=== PATIENT | male | born 1970 | race Caucasian/White ===

== ENCOUNTER 2018-07-27 11:15 | Emergency (ER) | payer BC ==
[2018-07-27 11:29] VITALS: BP 146/92
--- NOTE | 2018-07-27 11:38 | UC ---
Dizzy HPI HPI Summary: In Room Note: The patient is a 48 y/o M presenting to [facility] accompanied by his from [place] with a chief complaint of dizziness, numbness and tingling in the left arm, and SOB starting at 1000 this morning. He was outside on a walk with this when his left arm suddenly became numb and he became dizzy as if he was going to syncope. He also reports SOB at time of onset. He went back home, lied down, and drank some water, but the dizziness lasted for about an hour, and the numbness is still present at . He additionally c/o nausea without vomiting, diaphoresis, and diarrhea. He denies CP. His current discomfort is rated 2/10 in severity. Two days ago he was prescribed Amlodipine by his PCP, which he has been taking for HTN, but the dosage has increased because his BP has been increasing. He has hx of Type II DM (didn't check his glucose levels today), GERD, and sciatica. He has had previous experiences with bilateral arm tingling. He does not have hx of cardiac disease, but had a cardiac cath done about five years ago. FHx of cardiac disease. MD Note: Vital signs stable: BP 156/93 BP, Pulse Ox 100%. 2/10 discomfort from dizziness. Visit history: noncontributory to present complaint. Patient began on new antihypertensive medication yesterday. Nurse's Note: this morning started to feel dizzy, and left arm numbness. He has started on new meds last night and today. pt also has type 2 diabetes, and does not have his glucometer. - History Of Current Complaint Chief Complaint: UCDizziness Stated Complaint: DIZZINESS Time Seen by Provider: 07/27/18 11:20 Hx Obtained From: Patient Onset/Duration: Sudden Onset, Lasting Hours - starting at 1000 this morning, Still Present - tingling and numbness in left arm, Resolved - dizziness Timing: Hours Severity Initially: Moderate Severity Currently: Mild Pain Intensity: 2 Pain Scale Used: 0-10 Numeric Character: Dizzy - syncopal feeling Aggravating Factor(s): Nothing Alleviating Factor(s): Rest, Lying Down Associated Signs And Symptoms: Positive: Nausea, Diaphoresis, SOB, Change In Medication - new Amlodpain dosage but has been taking Amlodapine. Negative: Vomiting, Chest Pain - Allergies/Home Medications Allergies/Adverse Reactions: Allergies Allergy/AdvReac Type Severity Reaction Status Date / Time No Known Allergies Allergy Verified 07/27/18 12:31 Home Medications: Home Medications Allopurinol 100 mg PO DAILY 07/27/18 [History Confirmed 07/27/18] Cataplex 6 tab PO DAILY 07/27/18 [History Confirmed 07/27/18] Glimepiride 1 mg PO DAILY 07/27/18 [History Confirmed 07/27/18] [place]-3 Fatty Acids [Atl[place]-3] 1 tab PO DAILY 07/27/18 [History Confirmed ] Tizanidine HCl 2 mg PO DAILY 07/27/18 [History Confirmed 07/27/18] amLODIPine/Benazepril 08/31(NF [Lotrel 08/31(NF)] 1 tab PO DAILY 07/27/18 [ History Confirmed 07/27/18] PMH/Surg Hx/FS Hx/Imm Hx Endocrine History: Diabetes - Type II DM Cardiovascular History: Hypertension GI/ History: Gastroesophageal Reflux - Surgical History Surgical History: Yes Surgery Procedure, Year, and Place: hernia repair, bunion removal, right knee surgery with screws - Family History Known Family History: Positive: Cardiac Disease, Hypertension - Social History Occupation: Employed Full-time Alcohol Use: Daily Substance Use Type: None Smoking Status (MU): Never Smoked Tobacco Review of Systems Constitutional: Negative Skin: Negative Eyes: Negative ENT: Negative Respiratory: Shortness Of Breath, Other - NEGATIVE: SOB Cardiovascular: Negative, Other - NEGATIVE: CP Gastrointestinal: Diarrhea, Nausea, Other - NEGATIVE: vomiting Genitourinary: Negative Motor: Negative Neurovascular: Negative Musculoskeletal: Negative Neurological: Numbness - in left arm, Other - dizziness Psychological: Negative All Other Systems Reviewed And Are Negative: Yes - Comments Additional Review of Systems Comments: POSITIVE: dizziness, SOB, nausea, diarrhea, diaphoresis, left arm numbness and tingling; NEGATIVE: vomiting Physical Exam - Summary Physical Exam Summary: Appearance: The patient is well-appearing, is in no pain distress, and is well- nourished. Eyes: Conjunctiva are clear. ENT: The hearing is grossly normal, the pharynx is normal, and the TMs are normal. There is no muffled or hoarse voice. Neck: The neck is supple and there is no lymphadenopathy. Respiratory: The chest is nontender. The lungs are clear, there are normal breath sounds, and there is no respiratory distress. Cardiovascular: Heart is regular rate and rhythm. S1 and S2 normal. There is no murmur. Radial pulses equal and within normal limits. Femoral pulses equal and within normal limits. Abdomen: The abdomen is soft and nontender. No pulsations. There is no organomegaly. Bowel sounds: present Musculoskeletal: Strength is intact. The patient moves all extremities. Neurological: The patient is alert. Motor and sensory examination grossly intact. Psychological: The patient displays age appropriate behavior Skin: Negative for rashes. Triage Information Reviewed: Yes Vital Signs: Initial Vital Signs Temp 97.7 F 07/27/18 11:18 Pulse 79 07/27/18 11:18 Resp 18 07/27/18 11:18 BP 156/93 07/27/18 11:18 Pulse Ox 100 07/27/18 11:18 Vital Signs Reviewed: Yes Diagnostics - EKG EKG Comments: Taken at 11:13. No ST elevations. Cardiac Rate: NL - 70 BPM Cardiac Rhythm: Sinus: Normal Dizzy Course/Dx - Course Course Of Treatment: 48 y/o M presents with a varied past medical history including sciatica and what sounds like nerve impingement, problems to the upper extremities. Nonetheless, this morning the pt experienced dizziness, left arm numbness, seating, nausea, and SOB but with no CP. The remainder of the review was negative except as stated above in the HPI. EKG was unremarkable, but I encouraged the patient and his to go to the ED for further evaluation. He was stable upon discharge. My diagnosis is dizziness and left arm numbness, unclear etiopathy. Possible vertigo, possible cardiovascular event. Medications have been included in the original chart and reviewed. Elevated BP but has current hypertension diagnosis and treatment. - Differential Dx/Diagnosis Differential Diagnosis/HQI/PQRI: Other - vertigo, cardiovascular event Provider Diagnoses: dizziness and left arm numbness, unclear etiology Discharge - Sign-Out/Discharge Documenting (check all that apply): Patient Departure - Patient will be discharged with instruction to go immediately to ED. All imaging exams completed and their final reports reviewed: No Studies - Discharge Plan Condition: Stable Disposition: HOME-RECOMMEND TO ED Patient Education Materials: Dizziness (ED) Referrals: No Primary Care Phys,NOPCP [Primary Care Provider] - [facility] [Outside] - 1 Week Additional Instructions: Your blood pressure reading today was 156/93, indicating HYPERTENSION. Follow- up with your primary care provider within 4 weeks for blood pressure readings and further evaluation. Follow up with your doctor to recheck a few times in the next month. WE DISCUSSED: You should go to the ED now for further evaluation and treatment as needed. The combination of dizziness, nausea, sweating and left arm numbness may be something serious or simply a combination of a number of your usual problems. Your EKG was normal. Go directly to the emergency department. - Billing Disposition and Condition Condition: STABLE Disposition: Home-Recommend to ED - Attestation Statements Document Initiated by Elly: Yes Documenting Scribe: Sheron Polo Provider For Whom Elly is Documenting (Include Credential): Dr. Shane Rosado MD Scribe Attestation: Sheron Sibley scribed for Dr. Shane Rosado MD on 07/27/18 at 1528. Scribe Documentation Reviewed: Yes Provider Attestation: The documentation as recorded by the Sheron flores accurately reflects the service I personally performed and the decisions made by me, Dr. Shane Rosado MD
== END 2018-07-27 12:02 | disposition home health service (06) ==
LOC: UCEAST 11:15
DX: R42 Dizziness and giddiness (principal); R20.0 Anesthesia of skin; R20.2 Paresthesia of skin; E11.9 Type 2 diabetes mellitus without complications; I10 Essential (primary) hypertension; R11.0 Nausea; R61 Generalized hyperhidrosis; R06.02 Shortness of breath; Z79.84 Long term (current) use of oral hypoglycemic drugs; Z79.899 Other long term (current) drug therapy
CPT/HCPCS: 93005; 99202; G0463

== ENCOUNTER 2018-07-27 12:24 | Emergency (ER) | payer BC ==
--- NOTE | 2018-07-27 12:52 | ED ---
Dizziness - HPI Summary HPI Summary: 48 year old M referred from [facility] to [facility] accompanied by complains of dizziness described as almost passing out that began 10:00 this morning while taking a walk around [place] with . Symptoms aggravated by nothing. Symptoms alleviated by nothing. Patient reports lightheadedness and left arm numbness. He also notes feeling overheated and having clammy hands. He additionally complains of nausea and diarrhea. reports that patient's skin was pale on the car ride here. Patient and his are visiting from [place]. - History Of Current Complaint Chief Complaint: EDDizziness Stated Complaint: BLOOD WORK Time Seen by Provider: 07/27/18 12:32 Hx Obtained From: Patient, Family/Career Development Facilitator - Onset/Duration: Still Present, Suddenly Timing: Constant Character: Lightheaded - almost passing out Aggravating Factor(s): Nothing Alleviating Factor(s): Nothing Associated Signs And Symptoms: Positive: Other: - lightheadedness, left arm numbness, feeling overheated, having clammy hands, nausea, diarrhea, pale skin - Allergies/Home Medications Allergies/Adverse Reactions: Allergies Allergy/AdvReac Type Severity Reaction Status Date / Time No Known Allergies Allergy Verified 07/27/18 12:31 PMH/Surg Hx/FS Hx/Imm Hx Previously Healthy: No Endocrine/Hematology History: Reports: Hx Diabetes - type 2 Cardiovascular History: Reports: Hx Hypertension - started on new meds Neurological History: Reports: Other Neuro Impairments/Disorders - hx sciatica - Surgical History Surgery Procedure, Year, and Place: hernia repair, bunion removal, right knee surgery with screws Infectious Disease History: No Infectious Disease History: Denies: Traveled Outside the [place] in Last 30 Days - Family History Known Family History: Positive: Cardiac Disease, Hypertension - Social History Alcohol Use: Daily Hx Substance Use: No Substance Use Type: Reports: None Hx Tobacco Use: No Smoking Status (MU): Never Smoked Tobacco Review of Systems Positive: Other - feeling overheated, having clammy hands and pale skin Positive: Diarrhea, Nausea Neurological: Other - Dizziness, lightheadedness Positive: Numbness - left arm All Other Systems Reviewed And Are Negative: Yes Physical Exam - Summary Physical Exam Summary: Appearance: The patient is well-nourished in no acute distress and in no acute pain. Skin: The skin is warm and dry and skin color reflects adequate perfusion. HEENT: The head is normocephalic and atraumatic. The pupils are equal and reactive. The conjunctivae are clear and without drainage. Nares are patent and without drainage. Mouth reveals moist mucous membranes and the throat is without erythema and exudate. The external ears are intact. The ear canals are patent and without drainage. The tympanic membranes are intact. Neck: The neck is supple with full range of motion and non-tender. There are no carotid bruits. There is no neck vein distension. Respiratory: Chest is non-tender. Lungs are clear to auscultation and breath sounds are symmetrical and equal. Cardiovascular: Heart is regular rate and rhythm. There is no murmur or rub auscultated. There is no peripheral edema and pulses are symmetrical and equal. Abdomen: The abdomen is soft and non-tender. There are normal bowel sounds heard in all four quadrants and there is no organomegaly palpated. Musculoskeletal: There is no back tenderness noted. Extremities are non-tender with full range of motion. There is good capillary refill. There is no peripheral edema or calf tenderness elicited. Neurological: Patient is alert and oriented to person, place and time. The patient has symmetrical motor strength in all four extremities. Cranial nerves are grossly intact. Deep tendon reflexes are symmetrical and equal in all four extremities. Psychiatric: The patient has an appropriate affect and does not exhibit any anxiety or depression. Triage Information Reviewed: Yes Vital Signs On Initial Exam: Initial Vitals Temp Pulse Resp BP Pulse Ox 98.4 F 66 16 128/80 99 07/27/18 12:26 07/27/18 12:26 07/27/18 12:26 07/27/18 12:26 07/27/18 12:26 Vital Signs Reviewed: Yes Diagnostics - Vital Signs Vital Signs Temp Pulse Resp BP Pulse Ox 07/27/18 12:26 98.4 F 66 16 128/80 99 - Laboratory Result Diagrams: 07/27/18 13:06 07/27/18 13:07 Lab Statement: Any lab studies that have been ordered have been reviewed, and results considered in the medical decision making process. - EKG 1251 Cardiac Rate: NL - 64 BPM EKG Rhythm: Sinus Rhythm Re-Evaluation - Re-Evaluation First Eval Re-Evaluation Time: 14:47 Comment: Patient feels fine and is aware that we are awaiting second troponin test Second Eval Re-Evaluation Time: 16:34 Comment: Patient updated on his second troponin test. He and his are agreeable to discharge home and follow up with PCP in 2 days. Dizzy Course/Dx - Course Course Of Treatment: Mr. An presented after having an unusual episode while walking with his . His left arm went numb which she says is not unusual for him as he has neck problems and often times wakes up with both of his arms numb as he did this morning. He felt faint and dizzy like he was going to pass out which necessitated him turning around and going back to the house. By the time he got here he was feeling improved, he was nontoxic in appearance and his vitals were within normal limits. He was observed on the monitor while labs were obtained including a delayed troponin and was all within normal limits. - Diagnoses Provider Diagnoses: Near syncope Discharge - Sign-Out/Discharge Documenting (check all that apply): Patient Departure - Discharge - Discharge Plan Condition: Stable Disposition: HOME Patient Education Materials: Near Syncope (ED) Referrals: No Primary Care Phys,NOPCP [Primary Care Provider] - Additional Instructions: Follow up with your primary care provider in 2 days when you return to [place]. RETURN TO THE EMERGENCY DEPARTMENT FOR NEW OR WORSENING SYMPTOMS. - Billing Disposition and Condition Condition: STABLE Disposition: Home - Attestation Statements Document Initiated by Elly: Yes Documenting Scribe: Catrachita Marin Provider For Whom Elly is Documenting (Include Credential): Syed Lamar MD Scribe Attestation: I, Catrachita Marin, scribed for Syed Lamar MD on 07/27/18 at 1810. Scribe Documentation Reviewed: Yes Provider Attestation: The documentation as recorded by the Catrachita flores accurately reflects the service I personally performed and the decisions made by me, Syed Lamar MD
[2018-07-27 13:17] LABS: ABS Basophils 0 10^3/ul (0-0.2); ABS Eosinophils 0 10^3/ul (0-0.6); ABS Lymphocytes 1.2 10^3/ul (1.0-4.8); ABS Monocytes 0.6 10^3/ul (0-0.8); ABS Neutrophils 7.2 10^3/ul (1.5-7.7); ABS Nucleated RBC 0 10^3/ul; Eosinophil % 0.4 % (0-6); Hematocrit 42 % (42-52); Hemoglobin 14.5 g/dl (14.0-18.0); Lymphocyte % 13.1 % (25-47); Mean Corpuscular HGB Conc 34 g/dl (31-36); Mean Corpuscular Hemoglobin 33 pg (27-31); Mean Corpuscular Volume 95 fL (80-94); Mean Platelet Volume 10.3 um3 (7.4-10.4); Nucleated Red Blood Cells % 0; Platelet Count 144 10^3/ul (150-450); Red Blood Count 4.43 10^6/ul (4.00-5.40); Red Cell Distribution Width 13 % (10.5-15)
[2018-07-27 13:25] LABS: INR 0.86 (0.77-1.02)
[2018-07-27 13:38] LABS: EGFR Non-African American 93.7 (>60)
[2018-07-27 19:33] VITALS: BP 153/88
== END 2018-07-27 16:55 | disposition home or self-care (01) ==
LOC: ED 12:24
DX: R55 Syncope and collapse (principal)
CPT/HCPCS: 36415; 80053; 83605; 83735; 84443; 84484; 85025; 85379; 85610; 86140; 93005; 99282